=== PATIENT | female | born 1945 ===

== ENCOUNTER 2022-09-27 08:28 | Day surgery (SDC) | payer MEDICARE ==
[2022-09-27] MEDS ORDERED: Lactated Ringers 1,000 ML IV ONE (09:10)
[2022-09-27] MEDS ORDERED: Lactated Ringers 1,000 ML IV SCH (09:30)
--- NOTE | 2022-09-27 09:47 | HP ---
DATE OF SURGERY: 09/27/2022 HISTORY OF PRESENT ILLNESS: The patient is a 77-year-old with increased reflux, some epigastric discomfort and in her back despite Carafate. It helped some despite proton pump inhibitor. No prior upper endoscopy. Last colonoscopy years ago. She had polyps. She is in need of follow up screening colonoscopy as well. She denies any bloody stools. Family history no colon cancer, no esophageal cancer. PAST MEDICAL HISTORY: Hypothyroidism. History of reflux. 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 PAST SURGICAL HISTORY: Tonsillectomy. Back surgery. Hammer toe. Rotator cuff. Cornea transplant. Colonoscopy in the past. MEDICATIONS: Carafate, levothyroxine, gabapentin. ALLERGIES: ZOFRAN. FAMILY HISTORY: Heart disease, asthma, stroke, chronic obstructive pulmonary disease. SOCIAL HISTORY: No smoking or alcohol abuse. REVIEW OF SYSTEMS: Fourteen systems reviewed. No chest pain or palpitations. Other systems negative or noncontributory as above and per preadmission questionnaire. PHYSICAL EXAMINATION: Weight 225 pounds, height 5' 2". GENERAL: No acute distress. HEENT: Sclerae nonicteric. NECK: No JVD. CHEST: Equal excursion, nonlabored breathing. CVS: Regular rate and rhythm. ABDOMEN: Soft. No peritoneal signs. EXTREMITIES: No significant edema. NEURO: Alert, oriented, moving extremities symmetrically. RECTAL: Deferred timed to endoscopy exam. PSYCH: Appropriate mood and affect. IMPRESSION: Increased reflux, recently epigastric discomfort radiating to the back. Carafate helped some. She is in need of upper endoscopy to evaluate for gastritis, esophagitis, peptic ulcer disease or other etiology. History of polyps in the past. She is in need of follow up screening colonoscopy as well. General risk of bleeding or infection, risk of bowel injury or perforation, risk of missed or nondiagnosis or incomplete exam possibly requiring barium swallow, barium enema, other studies or procedures. General risk of anesthesia or sedation, risk of bowel prep but not limited to, consent obtained. Will proceed with EGD and colonoscopy as an outpatient.
[2022-09-27] MEDS ORDERED: Xylocaine-Mpf 2% 5 Ml Vial ONE (10:24)
[2022-09-27] MEDS ORDERED: DIPRIVAN 200 MG/20 ML IV ONE ×2 (10:24→11:00)
[2022-09-27] MEDS ORDERED: Ephedrine Sulfate 50 MG/ML ONE (11:03)
[2022-09-27] MEDS ORDERED: PHENYLEPHRINE HCL ONE (11:06)
[2022-09-27 12:08] VITALS: O2SAT 96
[2022-09-27 12:24] VITALS: BP 122/67; PULSE 75
--- NOTE | 2022-09-27 13:14 | OP ---
SURGERY DATE/TIME: 09/27/2022 1049 PREOPERATIVE DIAGNOSES: 1) Increased reflux, need for upper endoscopy. 2) Prior history of polyp, need for follow up screening colonoscopy. 3) ASA Class III. POSTOPERATIVE DIAGNOSES: 1) Increased reflux, need for upper endoscopy. 2) Prior history of polyp, need for follow up screening colonoscopy. 3) Gastric erythema, evaluate for minimal gastritis. 4) Plus or minus very short segment (1.5 mm) of distal esophagitis versus normal variation of gastroesophageal junction. 5) Diverticulosis. 6) Small early colon polyps versus hyperplastic lesion. 7) Good prep. 8) ASA Class III. 9) Withdrawal time of colonoscopy approximately seven minutes. PROCEDURES: 1) EGD with cold biopsy of small bowel to evaluate for celiac sprue. 2) Cold biopsy of antrum to evaluate for Helicobacter pylori. 3) Cold biopsy distal esophagus for histology. 4) Cold biopsy mid esophagus to evaluate for eosinophilic esophagitis. 5) Colonoscopy to cecum. 6) Hot biopsy polypectomy ascending colon polyp. 7) Hot biopsy polypectomy small early polyp versus hyperplastic lesion sigmoid colon. SURGEON: Dr. Rob Pineda. DOORPERSON: Adilia Romero, Medical Student II. ESTIMATED BLOOD LOSS: Minimal. INDICATIONS: As noted above. Risks and benefits explained in detail and not limited to and consent obtained. DESCRIPTION OF PROCEDURE AND FINDINGS: The patient is taken to the operating room. MAC anesthesia introduced. After official time out and no disagreement with planned procedure, bite block positioned. Video gastroscope easily passed down the esophagus to the patent pylorus. Third, second and first portions of duodenum grossly unremarkable. No signs of any obvious ulcers. Cold biopsy taken to evaluate for celiac disease or other etiology. Scope pulled back in the stomach some mild gastric erythema. Cold biopsy taken to evaluate for Helicobacter pylori to evaluate for minimal gastritis versus normal variation. On retroflex the gastroesophageal junction is snug against the scope. There were no signs of any ulcers or other mucosal lesions in the stomach. The scope pulled back. The gastroesophageal junction 36 cm. There was a little bit of irregular edge of the Z-line whether this is from early distal esophagitis of 1 to 1.5 mm or so, cold biopsy taken, versus normal variation of the gastroesophageal junction. No signs of any obvious masses. The remainder of the esophagus fairly unremarkable. Biopsied the mid esophagus to evaluate for eosinophilic esophagitis. The scope is withdrawn. The patient tolerated the procedure well. Attention was then turned to colonoscopy. Digital rectal exam did not reveal any rectal masses. Video colonoscope inserted and passed up the tortuous sigmoid, descending, transverse, ascending colon around to the cecum. Appendiceal orifice and valve well visualized and photo documented. Prep overall was good. Scope was carefully withdrawn over the next seven minutes stopping in the ascending colon. There is a small 2 mm polyp. Hot biopsy polypectomy. Scope pulled back over to the left colon. She had some mild diverticulosis, few scattered diverticula. In the sigmoid, small early polyp versus hyperplastic lesion removed with hot biopsy forceps with brief bursts of cautery? Good hemostasis noted. The patient tolerated the procedure well. There were no immediate complications. There was no family in the room to discuss findings with.
== END 2022-09-27 12:35 | disposition home or self-care (01) ==
LOC: SDC 08:28
PROVIDERS: ATTEND Surgery
DX: Z09 Encounter for follow-up examination after completed treatment for conditions other than malignant neoplasm (principal); Z86.010 Personal history of colon polyps; K21.9 Gastro-esophageal reflux disease without esophagitis; K31.89 Other diseases of stomach and duodenum; K20.90 Esophagitis, unspecified without bleeding; K57.30 Diverticulosis of large intestine without perforation or abscess without bleeding; K63.5 Polyp of colon
CPT/HCPCS: 99100; J2370; J2704